=== PATIENT | female | born 2000 ===

== ENCOUNTER 2025-09-17 17:46 | Emergency (ER) | payer MEDICAID, SELFPAY ==
[2025-09-17 17:48] VITALS: BP 121/72; PULSE 86; RESP 18; TEMP 36.3; O2SAT 98; BMI 23.0
--- NOTE | 2025-09-17 17:50 | ED.GENADULT ---
HPI - General Adult General Chief complaint: Wound/Laceration Stated complaint: glass fell on her, lacerations to her R ear Time Seen by Provider: 09/17/25 17:57 Related Data Previous Rx's ?Medication ?Instructions ?Recorded pyridoxine (vitamin B6) 25 mg 25 mg PO TID nausea & vomitting 5 12/03/24 tablet days #15 tabs amoxicillin 500 mg-potassium 1 tab PO BID #14 tabs 09/17/25 clavulanate 125 mg tablet (Augmentin) naproxen 500 mg tablet (Naprosyn) 500 mg PO BID PRN PAIN #20 tabs 09/17/25 Allergies Allergy/AdvReac Type Severity Reaction Status Date / Time No Known Allergies (No Known Allergy Unverified 09/20/25 14:14 Allergies*) [facility] Social History Social History (System 09/20/25 @ 14:14 by Mehran Corral) Advance Directives: No Advance Directives Information Provided: Yes Physical Exam ED Vital Signs: BMI result Body Mass Index 23.0 Course Course Course Narrative: RME: 25 yold female presents to the ED for right ear laceration. Glass mirror feel on her ear. RIght Ear lacerations on exam. patient to be seen in the ED. Medications Administered Discontinued Medications Generic Name Dose Route Start Last Admin Trade Name Freq PRN Reason Stop Dose Admin Diazepam 5 mg 09/17/25 18:10 09/17/25 18:17 Diazepam 5 Mg Tablet PO 09/17/25 18:11 5 mg ONCE ONE Administration Lidocaine HCl 10 ml 09/17/25 18:07 09/17/25 18:17 Lidocaine Hcl 1 % Mpf 5 Ml Vial SUBCUT 09/17/25 18:08 10 ml ONCE ONE Administration Oxycodone HCl 5 mg 09/17/25 19:58 09/17/25 20:04 Oxycodone Hcl Immed Release 5 Mg Tablet PO 09/17/25 19:59 5 mg ONCE ONE Administration Discharge Plan Discharge Clinical Impression: Laceration of ear, complex Patient Disposition: Home, Self-Care Instructions: Laceration (DC), Facial Laceration (ED) Additional Instructions: FOLLOW-UP WITH PLASTIC SPECIALIST CALL [phone] WE WILL LIKE YOU TO SEE THE A PLASTIC SURGEON FOR FOLLOW-UP AND STICHES REMOVAL. RETURN IF WORSE IF FEVER ,DRINAGE FROM WOUND ANY CONCERN Prescriptions: New amoxicillin-pot clavulanate [Augmentin] 500-125 mg tablet 1 tab PO BID Qty: 14 0RF naproxen [Naprosyn] 500 mg tablet 500 mg PO BID PRN (Reason: PAIN) Qty: 20 0RF No Action pyridoxine (vitamin B6) 25 mg tablet 25 mg PO TID 5 Days Qty: 15 0RF Referrals: [facility] Plastic Recon [Provider Group, Plastic Surgery] - 09/20/25 Referral Note: COMPLEX EAR LAC Interventions: ED Discharge Assessment Last Done: 09/17/25 20:08 Discharge Date/Time: 09/17/25 20:09 Print Language: Grenadian
--- NOTE | 2025-09-17 18:08 | ED_ITS ---
HPI - Wound/Laceration General Chief Complaint: Wound/Laceration Stated Complaint: glass fell on her, lacerations to her R ear Time Seen by Provider: 09/17/25 17:57 Source: patient Mode of arrival: ambulatory Limitations: no limitations History of Present Illness HPI narrative: THIS IS A 25 YEARS OLD FEMALE PATIENT PRESENTED TO THE EMERGENCY DEPARTMENT COMPLAINING OF RIGHT EAR LACERATION SHE STATES THAT VANESSA FELL OVER THE RIGHT EAR SHE HAS A DEEP HERE LACERATION NO OTHER INJURY Onset (ago): hour(s) (1) Location: other (LEFT EAR ) Place: home Context: accidental Associated symptoms: none Related Data Previous Rx's ?Medication ?Instructions ?Recorded pyridoxine (vitamin B6) 25 mg 25 mg PO TID nausea & vo mitting 5 12/03/24 tablet days #15 tabs amoxicillin 500 mg-potassium 1 tab PO BID #14 tabs clavulanate 125 mg tablet (Augmentin) naproxen 500 mg tablet (Naprosyn) 500 mg PO BID PRN PA IN #20 tabs 09/17/25 Allergies Allergy/AdvReac Type Severity Reaction Status Date / Time No Known Allergies Allergy Verified 09/17/25 17:54 Review of Systems 2 Constitutional: Constitutional: Reports no additional constitutional complaints Cardiovascular: Cardiovascular: Reports no additional cardiovascular complaints Respiratory: Respiratory: Reports no additional respiratory complaints [facility] Past Medical History Attestation statement: The following information was validated with the patient. [facility] Narrative: NONE Social History Social History Advance Directives: No Advance Directives Information Provided: Yes Physical Exam 2 Exam: Exam: NO ACUTE DISTRESS Vital Signs: Vital Signs: Last Vital Signs Temp 97.4 F 09/17/25 17:48 Pulse 86 09/17/25 17:48 Resp 18 09/17/25 17:48 BP 121/72 09/17/25 17:48 Pulse Ox 98 09/17/25 17:48 O2 Del Method Room Air 09/17/25 17:48 BMI result Body Mass Index 23.0 SHE HAS A VERY STABLE VITAL SIGN Const: Other: General: cooperative Orientation/consciousness: patient oriented x3 HEENT: Other: PATIENT HAS A DEEP LACERATION ON THE LEFT EAR IN THE ANTERIOR AND POSTERIOR ASPECT SEE PICTURE) Head: Yes normal to inspection Outer ear/TM images: 1. General nose exam: Normal external nose present Mouth: Normal oral and palatal mucosa present Throat: Yes posterior oropharynx normal Neck: Neck: Yes normal visual inspection Chest: Chest palpation & inspection: normal inspection of the chest Resp: Effort & Inspection: normal respiratory effort Auscultation: clear to auscultation bilaterally Cardio: Jugular venous distension: no JVD Rate: regular rate Rhythm: r egular rhythm GI: Inspection: Yes normal to inspection Palpation (GI): Soft to palpation, not firm and nontender Percussion: Yes normal to percussion Skin: General skin exam: no rashes or lesions noted and elasticity normal Neuro: General: patient oriented x3 Medications Administered Discontinued Medications Generic Name Dose Route Start Last Admin Trade Name Freq PRN Reason Stop Dose Admin Diazepam 5 mg 09/17/25 18:10 09/17/25 18:17 Diazepam 5 Mg Tablet PO 09/17/25 18:11 5 mg ONCE ONE Administration Lidocaine HCl 10 ml 09/17/25 18:07 09/17/25 18:17 Lidocaine Hcl 1 % Mpf 5 Ml Vial SUBCUT 09/17/25 18:08 10 ml ONCE ONE Administration Medical Decision Making Medical Decision Making [facility] Narrative: PATIENT IS HERE FOR LACERATION OF THE LEFT EAR WE WILL OFFER TO TRANSFER THE PATIENT PLASTIC, PATIENT DOES NOT WANT TO BE TRANSFERRED, SHE UNDERSTANDS SHE MAY HAVE SCAR.SHE WANTS ME TO REPAIR THE WOUND 7:43 pM WOUND REPAIRED Procedures Laceration Laceration 1: Site: other (EAR) Side (If applicable): left Size (cm): 8 Description: linear and irregular Depth: [id number] Local Anesthetic: lidocaine 1% Amount of anesthesia used (mL): 10 Pre-repair: wound explored and irrigated extensively Skin layer closed with: nylon Size (cm): 5-0 Number of sutures: 12 Technique: simple, interrupted Discharge Plan Discharge Clinical Impression: Laceration of ear, complex Qualifiers: Encounter type: initial encounter Laterality: left Qualified Code(s): S01.312A - Laceration without foreign body of left ear, initial encounter Patient Disposition: Home, Self-Care Instructions: Laceration (DC), Facial Laceration (ED) Additional Instructions: FOLLOW-UP WITH PLASTIC SPECIALIST CALL [phone] WE WILL LIKE YOU TO SEE THE A PLASTIC SURGEON FOR FOLLOW-UP Prescriptions: New amoxicillin-pot clavulanate [Augmentin] 500-125 mg tablet 1 tab PO BID Qty: 14 0RF naproxen [Naprosyn] 500 mg tablet 500 mg PO BID PRN (Reason: PAIN) Qty: 20 0RF No Action pyridoxine (vitamin B6) 25 mg tablet 25 mg PO TID 5 Days Qty: 15 0RF Referrals: [facility] Plastic Recon [Provider Group, Plastic Surgery] - 09/20/25 Referral Note: COMPLEX EAR LAC Print Language: Mongolian
[2025-09-17] MEDS: Lidocaine HCl 1 % MPF 5 ML VIAL 10 ML SUBCUT (18:17)
--- OUTSIDE RECORDS SUMMARY | 2025-09-17 18:40 | XMS_ITS | Clinical Summary ---
Author Organization [facility] Address [address] [place] [address] Care Team Providers Care Deck Engineer Name Role Phone Unavailable Primary Care Provider Unavailabl e Allergies No known active allergies Medications QUEtiapine (SEROquel) 50 MG tablet Take 50 mg by mouth nightly. Active prazosin (MINIPRESS) 2 MG capsule Take 2 mg by mouth. Active OXcarbazepine (TRILEPTAL) 150 MG tablet Take 150 mg by mouth 2 (two) times a day. Active prazosin (MINIPRESS) 1 MG capsule Take one tablet in the AM and 2 tablets in the PM 90 capsule 1 Active ondansetron (ZOFRAN-ODT) 4 MG disintegrating tablet Take 1 tablet (4 mg total) by mouth 3 times daily (every 8 hours) as needed for nausea or vomiting. Place tablet on tongue to dissolve. 10 tablet 2 Active emtricitabine-tenof ovir (TRUVADA) 200-300 mg per tablet Take 1 tablet by mouth daily. 7 tablet 2 Active raltegravir (ISENTRESS) 400 MG tablet Take 1 tablet (400 mg total) by mouth 2 (two) times a day. 14 tablet 2 Active Immunizations Immunization Administration Dates Next Due Hep B, Adolescent or Pediatric 04/09/2022 Social History Tobacco Use Types Packs/Day Years Used Date Smoking Tobacco: Never Smokeless Tobacco: Never Alcohol Use Standard Drinks/Week Comments Never 0 (1 standard drink = 0.6 oz pur e alcohol) AUDIT-C Answer Date Recorded Q1: How often do you have a drink containing alc ohol? Never 05/01/2021 Average Number of Drinks Not on file 021 Frequency of Binge Drinking Not on file 04/03 Comments Unknown Sex and Gender Information Value Date Recorded Sex Assigned at Not on file Legal Sex Female 12:02 PM EDT Gender Identity Not on file Sexual Orientation Not on file Last Filed Vital Signs Vital Sign Reading Time Taken Comments Blood Pressure 107/70 04/09/2022 11:12 PM EDT Pulse 76 04/09/2022 11:12 PM EDT Temperature 37.2 C (99 F) 04/09/2022 11:12 PM EDT Respiratory Rate 18 04/09/2022 11:12 PM EDT Oxygen Saturation 98% 04/09/2022 11:12 PM EDT Inhaled Oxygen Concentration - - Weight 50 kg (110 lb 3.7 oz) 04/09/2022 5:01 PM EDT Height 165 cm (5' 4.96 ) 04/09/2022 5:01 PM EDT Body Mass Index 18.37 04/09/2022 5:01 PM EDT Plan of Treatment Health Maintenance Due Date Last Done Comments Hepatitis C Virus Screening 1998 HIV Screening 2011 DTaP/Tdap/Td Vaccines (1 - Tdap) 2017 Hepatitis B Vaccines (1 of 3 - 19+ 3-dose series) 2017 04/09/2022 Pap Smear (Ages 21-65) 2019 Influenza Vaccine 07/02/2025 12/17/2003 COVID-19 Vaccine (1 - 2023-2 5 season) 2025 HPV Vaccines (No Doses Required) Completed Pneumococcal Vaccine: Pediat juan pablo (0-5 Years) and At-Risk Patients (6 to 49 Years) Aged Out No longer eligible b ased on patient[place] [id number] [facility]
--- OUTSIDE RECORDS SUMMARY | 2025-09-17 18:40 | XMS_ITS | Clinical Summary ---
Author Organization [facility] [employer] Address [address] [place] [address] Care Team Providers Care Call Center Trainer Name Role Phone Unavailable Primary Care Provider Unavailabl e Encounters Date Type Department Care Team Description 07/26/2025 Telephone [facility] MEDICINE [address] [place] [phone] Se Gomez MD CHW - New Patient Assistance (/) 07/13/2025 Patient Outreach [address] [phone] Brenda Franklin 07/13/2025 Patient Outreach [address] [address] Brenda Franklin 07/12/2025 Patient Outreach [address] [address] Patricia Petty Care Management (C3CM chart review) 07/12/2025 Patient Outreach [address] [address] Keely Abarca RN from Last 3 Months Social History Tobacco Use Types Packs/Day Years Used Date Smoking Tobacco: Never Assessed Comments Unknown Sex and Gender Information Value Date Recorded Sex Assigned at Female 10/01/2022 10:28 AM EDT Legal Sex Female 10:28 AM EDT Gender Identity Not on file Sexual Orientation Not on file Plan of Treatment Upcoming Encounters Date Type Department Care Team (Late st Contact Info) Description 10/19/2025 1:45 PM EST Office Visit [facility] CHC MED & PEDS [address] [place] [address] Nikunj Fraga MD [address] [place] [address] Health Maintenance Due Date Last Done Comments Depression Screening 1998 HIV Screening 1998 SDOH Screening 1998 Disability Screening 1998 Alcohol/Substance Use Screening 2010 Tobacco Screening 2010 Family Planning (PISQ) 2013 HPV Vaccines (3 - 3-dose series) 04/03/2016 01/10/2016, 09/13/2015 Hepatitis C Screening 2016 Pap Smear 2019 COVID-19 Vaccine ( season) 2025 Influenza Vaccine (#1) 2025 01/10/2016 DTaP/Tdap/Td Vaccines (9 - Td or Tdap) 05/18/2035 05/18/2025, 08/04/2019, 10/20/2009, Additional history exists Zoster Vaccines (1 of 2) 2048 RSV Patients and Patients Aged 60 years or older (1 - 1-dose 75+ series) 2073 HIB Vaccines Aged Out 1998, 10/03, 1998 No longer eligible based on patient's age to complete this topic Hepatitis B Vaccines Completed 1998, 1998, 1998 IPV Vaccines Completed 06/30/2002, 12/03, 1998, Additional history exists Pneumococcal Vaccine: Pediatrics (0 to 5 Years) and At-Risk Patients (6 to 49) Years Aged Out 10/20/2009 No longer eligible based on patient's age to complete this topic Hepatitis A Vaccines Completed 05/17/2014, 04/08/20 Meningococcal Vaccine Completed 09/13/2015 Meningococcal B Vaccine Aged Out No l onger eligible based on patient's age to complete this topic RSV under 20 months Aged Out No longe r eligible based on patient's age to complete this topic Rotavirus Vaccines Aged Out No longer eligible based on patient's age to complete this topic Insurance [employer] C[employer]
[2025-09-17] MEDS: oxyCODONE HCl Immed Release 5 MG TABLET PO (20:04)
[2025-09-17 20:08] VITALS: BP 121/72; PULSE 86; RESP 18; TEMP 36.3; O2SAT 98
== END 2025-09-17 20:09 | disposition home or self-care (01) ==
PROVIDERS: Emergency Provider Emergency Medicine
DX: S01.311A Laceration without foreign body of right ear, initial encounter (principal); W25.XXXA Contact with sharp glass, initial encounter; Y93.9 Activity, unspecified; Y92.9 Unspecified place or not applicable; Y99.8 Other external cause status
CPT/HCPCS: 12015; 13152; 99283; 99284; J2003

== ENCOUNTER 2025-09-28 13:37 | Emergency (ER) | payer MEDICAID, SELFPAY ==
[2025-09-28 14:11] VITALS: BP 134/56; PULSE 94; RESP 18; TEMP 36.6; O2SAT 99; BMI 25.6
--- NOTE | 2025-09-28 15:12 | ED.GENADULT ---
HPI - General Adult General Chief complaint: General Medical Stated complaint: Suture removal Time Seen by Provider: 09/28/25 14:44 Source: patient Mode of arrival: ambulatory Limitations: no limitations History of Present Illness ED Provider: Logan Lindquist HPI narrative: 25 yold female presents to the ED for suture removals on right ear. patient states no complaints. Related Data Previous Rx's ?Medication ?Instructions ?Recorded pyridoxine (vitamin B6) 25 mg 25 mg PO TID nausea & vomitting 5 12/03/24 tablet days #15 tabs amoxicillin 500 mg-potassium 1 tab PO BID #14 tabs 09/17/25 clavulanate 125 mg tablet (Augmentin) naproxen 500 mg tablet (Naprosyn) 500 mg PO BID PRN PAIN #20 tabs 09/17/25 Allergies Allergy/AdvReac Type Severity Reaction Status Date / Time No Known Allergies (No Known Allergy Unverified 09/28/25 14:13 Allergies*) Review of Systems Review of Systems: right ear suture removal Yes all other systems are reviewed and are negative [facility] Social History Social History (System 09/20/25 @ 14:14 by Mehran Corral) Advance Directives: No Advance Directives Information Provided: No Do you have a plan to hurt others: No Plan Physical Exam ED Vital Signs: Vital Signs - 24 hr 09/28/25 14:11 Temperature 98 F Pulse Rate 94 Respiratory Rate 18 Blood Pressure 134/56 L Pulse Oximetry 99 Oxygen Delivery Method Room Air BMI result Body Mass Index 25.6 Const General: cooperative, healthy appearing, comfortable, no acute distress, well developed, alert, awake and Physically active Orientation/consciousness: patient oriented x3 HENMT Head: Yes normal to inspection, Yes No palpable skull fracture present, Yes normocephalic and Yes atraumatic Ears: hearing grossly normal bilaterally, external ears normal, TM's normal bilaterally, TM normal on the right, TM normal on the left, EAC's normal, mastoids normal and no periauricular adenopathy Outer ear/TM images:  1. sutures non-infected. Eyes General: appearance normal, both eyes and all related structures Neck Neck: Yes normal visual inspection, Yes full ROM, Yes no lymphadenopathy, Yes no meningeal signs, Yes trachea midline, Yes supple, No anterior neck swelling and No tender Chest Chest palpation & inspection: normal inspection of the chest and normal palpation of entire chest wall Resp Effort & Inspection: normal respiratory effort and able to speak in complete sentences Auscultation: clear to auscultation bilaterally Cardio Jugular venous distension: no JVD Heart sounds: S1 normal heart sound present and S2 normal heart sound present GI Inspection: Yes normal to inspection Palpation (GI): Soft to palpation, not firm, nontender and no guarding General: Yes no CVA tenderness Back/Spine/Pelvis Back: no CVA tenderness and No back tenderness Skin General skin exam: no rashes or lesions noted, elasticity normal and turgor normal Neuro General: patient oriented x3, gait normal, tone normal, moves all extremities, Normal light touch and pain sensation, no meningeal signs, no focal motor deficits and CN's II-XI intact bilaterally Extrem General: Yes normal to inspection, Yes full ROM and Yes capillary refill normal Psych Appearance: grossly normal, well kempt and not disheveled Medical Decision Making Medical Decision Making MDM Narrative: RME: 25-year-old female presents to ED for 12 sutures of right ear to be removed. Sutures were placed on 09/17. Patient has follow-up appointment with [facility] ENT plastic reconstructive surgery. Sutures removed and area cleaned with sterile saline. Differential Diagnosis Differential Diagnoses: The differential diagnosis associated with the presentation includes (sutured wounds) Admission/Observation Consideration of admission/observation: Escalation of care including admission/observation considered Independent Historian Clinical information obtained from an independent historian. History obtained from or confirmed by: Other (patient) Discharge Plan Discharge Clinical Impression: Encounter for removal of sutures Patient Disposition: Home, Self-Care Instructions: Stitches Removal (ED) Additional Instructions: Recommend follow up with primary care provider and [facility] ENT maxillofacial surgery for re-evaluation for reconstructive surgery if needed. Presents to ED for any redness, pus discharge, foul odor, bluish black discoloration, fever, chills, ear pain, any other concerning symptoms. Prescriptions: No Action pyridoxine (vitamin B6) 25 mg tablet 25 mg PO TID 5 Days Qty: 15 0RF amoxicillin-pot clavulanate [Augmentin] 500-125 mg tablet 1 tab PO BID Qty: 14 0RF naproxen [Naprosyn] 500 mg tablet 500 mg PO BID PRN (Reason: PAIN) Qty: 20 0RF Stand Alone Forms: Work/School Release Discharge Date/Time: 09/28/25 15:30 Print Language: Ivorian
--- OUTSIDE RECORDS SUMMARY | 2025-09-28 19:47 | XMS_ITS | Clinical Summary ---
Author Organization [facility] [employer] Address [address] [place] [address] Care Team Providers Care Retail Sales Merchandiser Name Role Phone Unavailable Primary Care Provider Unavailabl e Encounters Date Type Department Care Team Description 07/26/2025 Telephone [facility] MEDICINE [address] [place] [phone] Se Gomez MD CHW - New Patient Assistance (/) 07/13/2025 Patient Outreach [address] [address] Brenda Franklin 07/13/2025 Patient Outreach [address] [address] Brenda Franklin 07/12/2025 Patient Outreach [address] [address] Patricia Petty Care Management (C3CM chart review) 07/12/2025 Patient Outreach [address] [address] Keely Abarca RN from Last 3 Months [...] Description 10/19/2025 1:45 PM EST Office Visit [facility] CHC MED & PEDS [address] [place] [address] Nikunj Fraga MD [address] [place] [address] Health Maintenance Due Date Last Done Comments [...] patient's age to complete this topic Insurance [employer] C3
== END 2025-09-28 15:30 | disposition home or self-care (01) ==
PROVIDERS: Emergency Provider Emergency Medicine
DX: Z48.02 Encounter for removal of sutures (principal)
CPT/HCPCS: 99281